=== PATIENT | female | born 1965 | race Caucasian/White ===

== ENCOUNTER 2016-06-15 03:39 | Observation (INO) | payer OTHER ==
[2016-06-15] MEDS ORDERED: HYDROmorphone 1 MG/ML Syringe IVPUSH ONE (04:07)
[2016-06-15] MEDS ORDERED: Sodium Chloride 0.9% 10 ML Syringe FLUSH PRN ×2 (04:07→14:02)
[2016-06-15] MEDS ORDERED: Ondansetron 4 MG/2 ML SDV IVPUSH ONE (04:07)
[2016-06-15] MEDS: Sodium Chloride 0.9% 1,000 ML IV SCH ×3 (04:35→19:29)
[2016-06-15] MEDS ORDERED: Sodium Chloride 0.9% 500 ML IV ONE ×2 (05:44→05:57)
--- NOTE | 2016-06-15 05:57 | EDM.PDOC ---
ED HPI GI/ABDOMINAL - General Chief Complaint: Abdominal Pain Stated Complaint: RIGHT SIDE PAIN Time Seen by Provider: 06/15/16 04:00 Source of Information: Reports: Patient, RN notes reviewed - History of Present Illness INITIAL COMMENTS - FREE TEXT/NARRATIVE: 50-year-old female comes in with abdominal flank and back discomfort. This started yesterday during the day right lower abdomen and right flank. The pain worsened last evening and then became much worse early this morning she presents with nausea, quite severe right flank and back discomfort. On arrival she is having a lot of cramping. She's not been able to sleep. There's been nausea but no vomiting. She also has had several episodes of quite watery diarrhea. No fever or chills. No voiding symptomatology. She does have some mild discomfort going to the left lower abdomen but its much less severe than what she is experiencing on the right. The pain does radiate toward the right groin but not completely into the groin. She's never had a kidney stone before. She still does have her appendix. 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: - Past Surgical History HEENT Surgical History: Reports: Tonsillectomy GI Surgical History: Reports: Appendectomy Female Surgical History: Reports: Breast biopsy, section, Hysterectomy, Tubal ligation Dermatological Surgical History: Reports: Other (see below) Social & Family History - Tobacco Use Smoking Status *Q: Current Some Day Smoker Years of Tobacco use: 30 Packs/Tins Daily: 0.5 Used Tobacco, but Quit: Yes Month Tobacco Last Used: Second Hand Smoke Exposure: No - Caffeine Use Caffeine Use: Reports: None - Recreational Drug Use Recreational Drug Use: No Drug Use in Last 12 Months: No ED ROS GENERAL - Review of Systems Review Of Systems: See Below Constitutional: Reports: chills. Denies: fever HEENT: Reports: No symptoms Respiratory: Denies: Shortness of Breath, Pleuritic Chest Pain Cardiovascular: Denies: Chest pain GI/Abdominal: Reports: Abdominal pain, Diarrhea (Primarily right sided), Nausea. Denies: Hematochezia, Melena, Vomiting Musculoskeletal: Reports: no symptoms Skin: Reports: no symptoms Neurological: Reports: No Symptoms ED EXAM, GI/ABD - Physical Exam Exam: See Below General Appearance: alert, severe distress Eyes: bilateral: normal appearance Throat/Mouth: Normal inspection, Normal oropharynx Neck: supple, full range of motion Respiratory/Chest: no respiratory distress, lungs clear, normal breath sounds Cardiovascular: tachycardia GI/Abdominal: tenderness (Right lower abdomen and right flank). No: guarding, rebound Extremities: normal inspection, normal range of motion Neurological: alert, oriented, no motor/sensory deficits Course - Vital Signs Last Recorded V/S: Last Vital Signs Temp 97.2 F 06/15/16 03:45 Pulse 109 H 06/15/16 03:45 Resp 20 06/15/16 03:45 BP 156/79 H 06/15/16 03:45 Pulse Ox 100 06/15/16 03:45 - Orders/Labs/Meds Orders: Active Orders 24 hr Category Date Time Status Peripheral IV Care [RC] . DIRECTED Care 06/15/16 04:07 Active Abdomen Pelvis wo Cont [CT] Stat Exams 06/15/16 04:26 Taken Sodium Chloride 0.9% [Normal Saline] 1,000 ml Med 06/15/16 04:15 Active IV ASDIRECTED Sodium Chloride 0.9% [Saline Flush] Med 06/15/16 04:07 Active 10 ml FLUSH ASDIRECTED PRN Peripheral IV Insertion Adult [OM.PC] Stat Oth 06/15/16 04:07 Ordered Medication Orders Sodium Chloride (Normal Saline) 1,000 mls @ 150 mls/hr IV ASDIRECTED MARCUS Last Admin: 06/15/16 04:35 Dose: 150 mls/hr Sodium Chloride (Saline Flush) 10 ml FLUSH ASDIRECTED PRN PRN Reason: Keep Vein Open Last Admin: 06/15/16 04:37 Dose: 10 ml Labs: Laboratory Tests 06/15/16 06/15/16 06/15/16 Range/Units 04:40 04:40 04:40 WBC 10.93 H (3.98-10.04) K/mm3 RBC 5.06 (3.98-5.22) M/mm3 Hgb 14.4 (11.2-15.7) gm/L Hct 42.3 (34.1-44.9) % MCV 83.6 (79.4-94.8) fl MCH 28.5 (25.6-32.2) pg MCHC 34.0 (32.2-35.5) g/dl RDW Std Deviation 43.4 (36.4-46.3) fL Plt Count 221 (182-369) K/mm3 MPV 10.4 (9.4-12.3) fl Neut % (Auto) 72.6 H (34.0-71.1) % Lymph % (Auto) 21.2 (19.3-51.7) % [facility] % (Auto) 4.6 L (4.7-12.5) % Eos % (Auto) 1.0 (0.7-5.8) Baso % (Auto) 0.5 (0.1-1.2) % Neut # (Auto) 7.94 H (1.56-6.13) K/mm3 Lymph # (Auto) 2.32 (1.18-3.74) K/mm3 [facility] # (Auto) 0.50 H (0.24-0.36) K/mm3 Eos # (Auto) 0.11 (0.04-0.36) K/mm3 Baso # (Auto) 0.05 (0.01-0.08) K/mm3 Sodium 141 (136-145) mEq/L Potassium 3.1 L (3.5-5.1) mEq/L Chloride 106 (98-107) mEq/L Carbon Dioxide 20 L (21-32) mEq/L Anion Gap 18.1 H (5-15) BUN 12 (7-18) mg/dL Creatinine 0.9 (0.55-1.02) mg/dL Est Cr Clr Drug Dosing 66.54 mL/min Estimated GFR (MDRD) > 60 (>60) mL/min BUN/Creatinine Ratio 13.3 L (14-18) Glucose 149 H (74-106) mg/dL Calcium 9.0 (8.5-10.1) mg/dL Total Bilirubin 0.2 (0.2-1.0) mg/dL AST 11 L (15-37) U/L ALT 22 (14-59) U/L Alkaline Phosphatase 97 (46-116) U/L C-Reactive Protein < 0.2 (<1.0) mg/dL Total Protein 7.9 (6.4-8.2) g/dl Albumin 3.7 (3.4-5.0) g/dl Globulin 4.2 gm/dL Albumin/Globulin Ratio 0.9 L (1-2) Urine Color (Yellow) Urine Appearance (Clear) Urine pH (5.0-8.0) Ur Specific [place] (1.005-1.030) Urine Protein (Negative) Urine Glucose (UA) (Negative) Urine Ketones (Negative) Urine Occult Blood (Negative) Urine Nitrite (Negative) Urine Bilirubin (Negative) Urine Urobilinogen (0.2-1.0) Ur Leukocyte Esterase (Negative) Urine RBC (0-5) /hpf Urine WBC (0-5) /hpf Ur Epithelial Cells (0-5) /hpf Urine Bacteria (FEW) /hpf Urine Mucus (FEW) /hpf 06/15/16 Range/Units 05:06 WBC (3.98-10.04) K/mm3 RBC (3.98-5.22) M/mm3 Hgb (11.2-15.7) gm/L Hct (34.1-44.9) % MCV (79.4-94.8) fl MCH (25.6-32.2) pg MCHC (32.2-35.5) g/dl RDW Std Deviation (36.4-46.3) fL Plt Count (182-369) K/mm3 MPV (9.4-12.3) fl Neut % (Auto) (34.0-71.1) % Lymph % (Auto) (19.3-51.7) % [facility] % (Auto) (4.7-12.5) % Eos % (Auto) (0.7-5.8) Baso % (Auto) (0.1-1.2) % Neut # (Auto) (1.56-6.13) K/mm3 Lymph # (Auto) (1.18-3.74) K/mm3 [facility] # (Auto) (0.24-0.36) K/mm3 Eos # (Auto) (0.04-0.36) K/mm3 Baso # (Auto) (0.01-0.08) K/mm3 Sodium (136-145) mEq/L Potassium (3.5-5.1) mEq/L Chloride (98-107) mEq/L Carbon Dioxide (21-32) mEq/L Anion Gap (5-15) BUN (7-18) mg/dL Creatinine (0.55-1.02) mg/dL Est Cr Clr Drug Dosing mL/min Estimated GFR (MDRD) (>60) mL/min BUN/Creatinine Ratio (14-18) Glucose (74-106) mg/dL Calcium (8.5-10.1) mg/dL Total Bilirubin (0.2-1.0) mg/dL AST (15-37) U/L ALT (14-59) U/L Alkaline Phosphatase (46-116) U/L C-Reactive Protein (<1.0) mg/dL Total Protein (6.4-8.2) g/dl Albumin (3.4-5.0) g/dl Globulin gm/dL Albumin/Globulin Ratio (1-2) Urine Color Yellow (Yellow) Urine Appearance Clear (Clear) Urine pH 6.0 (5.0-8.0) Ur Specific [place] 1.020 (1.005-1.030) Urine Protein Trace H (Negative) Urine Glucose (UA) Negative (Negative) Urine Ketones Negative (Negative) Urine Occult Blood Negative (Negative) Urine Nitrite Negative (Negative) Urine Bilirubin Negative (Negative) Urine Urobilinogen 0.2 (0.2-1.0) Ur Leukocyte Esterase Negative (Negative) Urine RBC 0-5 (0-5) /hpf Urine WBC 0-5 (0-5) /hpf Ur Epithelial Cells 0-5 (0-5) /hpf Urine Bacteria Not seen (FEW) /hpf Urine Mucus Not seen (FEW) /hpf Meds: Medications Generic Name Dose Route Start Last Admin Trade Name Freq PRN Reason Stop Dose Admin Sodium Chloride 1,000 mls @ 150 mls/hr 06/15/16 04:15 06/15/16 04:35 Normal Saline IV 150 mls/hr ASDIRECTED MARCUS Administration Sodium Chloride 10 ml 06/15/16 04:07 06/15/16 04:37 Saline Flush FLUSH 10 ml ASDIRECTED PRN Administration Keep Vein Open Discontinued Medications Generic Name Dose Route Start Last Admin Trade Name Freq PRN Reason Stop Dose Admin Hydromorphone HCl 0.5 mg 06/15/16 04:07 06/15/16 04:37 Dilaudid IVPUSH 06/15/16 04:08 0.5 mg ONETIME ONE Administration Hydromorphone HCl 0.5 mg 06/15/16 06:13 06/15/16 06:19 Dilaudid IVPUSH 06/15/16 06:14 0.5 mg ONETIME ONE Administration Sodium Chloride 500 mls @ 999 mls/hr 06/15/16 05:44 06/15/16 06:45 Normal Saline IV 06/15/16 06:14 999 mls/hr .BOLUS ONE Administration Sodium Chloride 500 mls @ 999 mls/hr 06/15/16 05:57 Normal Saline IV 06/15/16 06:27 .BOLUS ONE Ondansetron HCl 4 mg 06/15/16 04:07 06/15/16 04:35 Zofran IVPUSH 06/15/16 04:08 4 mg ONETIME ONE Administration - Re-Assessments/Exams Free Text/Narrative Re-Assessment/Exam: 06/15/16 06:00. Patient had fairly good relief initially after Dilaudid 0.5 mg IV along with Zofran [address] report has come back showing a mesenteric mass with associated lymphadenopathy and mesenteric stranding. See radiologist report for details. Appendix was visualized and was normal. No evidence for kidney stones or hydroureter. UA did come back normal. Labs are as documented. White blood count mildly elevated, anion gap was elevated and Co2 was down showing at least moderate dehydration. 06:45. Her pain did start coming back a short time ago and have given a further 0.5 mg dilaudid IV. I consulted with Dr. Aj Reyes, general surgeon subcontract manager. Because this does not look like a surgical problem at this point he has asked that I consider admitting to medicine and he will consult to help figure out further plan of treatment. At this point we'll admit for pain control, fluid hydration and try get more clarification from Radiologist regarding etiology of current findings. Departure - Departure Time of Disposition: 07:00 Disposition: Admitted As Inpatient 65 Condition: fair Clinical Impression: Dehydration Abdominal pain Qualifiers: Abdominal location: right lower quadrant Qualified Code(s): R10.31 - Right lower quadrant pain Diarrhea Qualifiers: Diarrhea type: unspecified type Qualified Code(s): R19.7 - Diarrhea, unspecified Forms: ED Department Discharge - My Orders Last 24 Hours: My Active Orders 06/15/16 04:07 Peripheral IV Care [RC] . DIRECTED Sodium Chloride 0.9% [Saline Flush] 10 ml FLUSH ASDIRECTED PRN Peripheral IV Insertion Adult [OM.PC] Stat 06/15/16 04:15 Sodium Chloride 0.9% [Normal Saline] 1,000 ml IV ASDIRECTED 06/15/16 04:26 Abdomen Pelvis wo Cont [CT] Stat - Assessment/Plan Last 24 Hours: My Active Orders 06/15/16 04:07 Peripheral IV Care [RC] . DIRECTED Sodium Chloride 0.9% [Saline Flush] 10 ml FLUSH ASDIRECTED PRN Peripheral IV Insertion Adult [OM.PC] Stat 06/15/16 04:15 Sodium Chloride 0.9% [Normal Saline] 1,000 ml IV ASDIRECTED 06/15/16 04:26 Abdomen Pelvis wo Cont [CT] Stat
[2016-06-15] MEDS ORDERED: HYDROmorphone 0.5 MG/0.5 ML Syringe IVPUSH ONE ×2 (06:13→07:40)
[2016-06-15] MEDS ORDERED: Potassium Chloride 10 MEQ in Premix Bag 1 BAG IV ONE (07:28)
[2016-06-15] MEDS ORDERED: Sodium Chloride 0.9% 1,000 ML IV SCH (07:45)
--- NOTE | 2016-06-15 08:16 | CT ---
CT abdomen and pelvis Technique: Multiple axial sections were obtained from above the dome of the diaphragm inferiorly through the pubic symphysis. Intravenous and oral contrast has not been given. Study was performed as a ureteral stone protocol. Comparison: Previous CT abdomen and pelvis exam of 02/25/09. Findings: Kidneys show no hydronephrosis. Very minimal nonobstructing stone seen within the upper right kidney. No other abnormal calcifications are seen along the course of the ureters or within the kidneys. Visualized lung bases show nothing acute. Small calcification noted within the liver believed to represent incidental granuloma. No other focal parenchymal abnormality is seen within the liver. Spleen appears within normal limits. Adrenal glands show no nodule. Pancreas shows no discrete abnormality. Gallbladder shows no calcified gallstones. Aorta contains atherosclerotic calcification without aneurysmal dilatation. Several slightly prominent retroperitoneal lymph nodes are seen. Possible soft tissue mass at the root of the mesentery is seen measuring around 3.0 cm. There are some enlarged surrounding lymph nodes seen within the mesentery. No pelvic mass or adenopathy is seen. No free fluid is seen. No findings of appendicitis. Bone window settings were reviewed which show sclerosis within the left sacroiliac joint which is felt to be degenerative. Scattered degenerative endplate spurring is seen within the spine. Impression: 1. Small mesenteric soft tissue mass measuring 3.0 cm. Small surrounding mesentery lymph nodes are seen as well as minimal retroperitoneal adenopathy. These findings are an interval change from previous CT exam. Detail is somewhat limited without oral contrast. Recommend these findings be confirmed after oral and IV contrast. 2. Minimal nonobstructing stone within the right kidney. No hydronephrosis or ureteral stone is seen. 3. Other incidental findings as described above. Diagnostic code #9 I agree with preliminary report issued by [facility] (report finalized on 06/15/16, 6:25 AM Central Time)
--- NOTE | 2016-06-15 09:02 | PCM.HP ---
H&P History of Present Illness - General Date of Service: 06/15/16 Admit Problem/Dx: Admission Diagnosis/Problem Admission Diagnosis/Problem Abdominal pain Source of Information: Patient, Family, Provider, RN notes reviewed History Limitations: Reports: No limitations - History of Present Illness Initial Comments - Free Text/Narative: This a 50 yo white female with no significant past medical hx/o who comes in with complaints gradually worsening right lower abdominal pain with radiation to the back that started yesterday. Her symptom is associated with nausea w/o emesis. She also reports watery diarrhea. She denies any fever or chills. She denies any urianry symptoms. She denies any hx/o malignancy. She hx/o endoscopy in the past. However she admits to a strong family hx/o colon cancer with her father and a sister. Her initial work up in ED shows a CBC remarkable for WBC of 10.93, and Neutrophils or 72.6%. Her chemistry is significant for K of 3.1, CO2 of 20, AG of 18.1, BS of 149, and AST of 11. Her UA is negative for UTI. Her Abdominal CT scan shows an abnormal mesenteric mass with retro-peritoneal adenopathy. Patient is being admitted for Abdominal Pain. Dr. Reyes was consulted in ED for further evaluation. 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: - Past Surgical History HEENT Surgical History: Reports: Tonsillectomy GI Surgical History: Reports: Appendectomy Female Surgical History: Reports: Breast biopsy, section, Hysterectomy, Tubal ligation Dermatological Surgical History: Reports: Other (see below) Social & Family History - Tobacco Use Smoking Status *Q: Current Some Day Smoker Years of Tobacco use: 30 Packs/Tins Daily: 0.5 Used Tobacco, but Quit: Yes Month Tobacco Last Used: Second Hand Smoke Exposure: No - Caffeine Use Caffeine Use: Reports: None - Recreational Drug Use Recreational Drug Use: No Drug Use in Last 12 Months: No H&P Review of Systems - Review of Systems: Review Of Systems: See Below General: Denies: fever, chills HEENT: Reports: no symptoms Pulmonary: Denies: Shortness of Breath Cardiovascular: Denies: chest pain Gastrointestinal: Reports: Abdominal pain, Diarrhea, Nausea. Denies: Decreased appetite, Difficulty swallowing, Hematemesis, Hematochezia, Vomiting Genitourinary: Reports: no symptoms Musculoskeletal: Reports: no symptoms Skin: Denies: cyanosis, pruritis, rash, erythema Psychiatric: Denies: depression, anxiety, agitation, hallucinations Neurological: Denies: Seizure, Difficulty Walking, Weakness, Gait Disturbance Hematologic/Lymphatic: Reports: no symptoms Immunologic: Reports: no symptoms Exam - Exam Exam: See Below - Vital Signs Vital Signs: Last Vital Signs Temp 36.2 C 06/15/16 03:45 Pulse 109 H 06/15/16 03:45 Resp 20 06/15/16 03:45 BP 156/79 H 06/15/16 03:45 Pulse Ox 100 06/15/16 03:45 Weight: 98.43 kg - Exam General: alert, oriented, cooperative, mild distress HEENT: Conjunctiva clear, EACs clear, EOMI, Hearing intact, Mucosa moist & pink , Nares patent, Normal nasal septum, Posterior pharynx clear, Pupils equal, Pupils reactive Neck: supple, trachea midline Lungs: Clear to auscultation, Normal respiratory effort Cardiovascular: regular rate, regular rhythm Abdomen: normal bowel sounds, soft, organomegaly, tenderness (right lower abdomen). No: distention, guarding, rigidity, rebound (Female) Exam: Deferred Rectal (Female) Exam: Deferred Back Exam: normal inspection, decreased range of motion Extremities: normal inspection, normal pulses Peripheral Pulses: 2+: posterior tibial (L), posterior tibial (R), dorsalis pedis (L), dorsalis pedis (R) Skin: warm, dry, intact Neuro Extensive - Mental Status: oriented x3, normal cognition, memory intact Neuro Extensive - Motor, Sensory, Reflexes: CN II-XII intact, normal gait Psychiatric: alert, normal affect, normal mood - Patient Data Result Diagrams: 06/15/16 04:40 06/15/16 04:40 *Q Meaningful Use (ADM) - VTE *Q VTE Criteria *Q: - Stroke *Q Stroke Criteria *Q: - AMI *Q AMI Criteria *Q: Problem List Initiated/Reviewed/Updated: Yes Orders Last 24hrs: Active Orders 24 hr Category Date Time Status Sodium Chloride 0.9% [Normal Saline] 1,000 ml Med 06/15/16 07:45 Active IV ASDIRECTED Medication Orders Sodium Chloride (Normal Saline) 1,000 mls @ 150 mls/hr IV ASDIRECTED MARCUS Last Admin: 06/15/16 04:35 Dose: 150 mls/hr Potassium Chloride 10 meq/ (Premix) 100 mls @ 50 mls/hr IV ASDIRECTED ONE Stop: 06/15/16 09:27 Last Admin: 06/15/16 07:37 Dose: 50 mls/hr Sodium Chloride (Normal Saline) 1,000 mls @ 150 mls/hr IV ASDIRECTED MARCUS Sodium Chloride (Saline Flush) 10 ml FLUSH ASDIRECTED PRN PRN Reason: Keep Vein Open Last Admin: 06/15/16 04:37 Dose: 10 ml Assessment/Plan Comment:: Assessment/Plan: Acute: Right Lower Abdominal Pain - Abdominal CT scan: 3 cm small mesenteric soft tissue mass. Retro- peritoneal adenopathy - Strong family hx/o Colon CA : Dad and Sister (both ) - Suspect Lymphoma/Intra-abdominal Tumor/Carcinoid Tumor - Awaiting further input from Dr. Reyes - Consider CT scan with Contrast - PRN pain meds for now Nausea w/o Vomiting - PRN Anti-emesis - Supportive Care Watery Diarrhea - No unusual drink or diet - No recent travel - No recent antibiotic use - Cannot r/o stomach flu - Supportive Clear Hypokalemia - K 3.1 likely from GI Loss - Pharmacy to replete and monitor Non-obstructing Stone in the Right Kidney Chronic: Nicotine Dependence/Active Smoker Muscle Spasm Plan: Admit to Obs Routine AM Labs Offered Nicotine Patch-refused PRN Meds for Symptomatic Control Consult Dr. Reyes NPO for now until GS eval SW/CM for d/c planning CT scan with contrast Code status:1
[2016-06-15] MEDS ORDERED: Acetaminophen 325 MG Tab PO PRN (10:37)
[2016-06-15] MEDS ORDERED: Polyethylene Glycol 3350 Powder 17 GM Packet PO PRN (10:37)
[2016-06-15] MEDS ORDERED: Bisacodyl 5 MG Tab PO PRN (10:37)
[2016-06-15] MEDS ORDERED: Ondansetron 4 MG/2 ML SDV IV PRN (10:37)
[2016-06-15] MEDS ORDERED: Temazepam 30 MG Cap PO PRN (10:37)
[2016-06-15] MEDS ORDERED: LORazepam 2 MG/ML MDV IV PRN (10:37)
[2016-06-15] MEDS ORDERED: Promethazine 12.5 MG in Sodium Chloride 0.9% 50 ML IV PRN (10:37)
[2016-06-15] MEDS ORDERED: Albuterol/Ipratropium 3.0-0.5 MG/3 ML Neb Soln NEB PRN (10:37)
[2016-06-15] MEDS: HYDROmorphone 1 MG/ML Syringe IVPUSH PRN (10:39)
[2016-06-15] MEDS ORDERED: Cyclobenzaprine 10 MG Tab PO PRN (10:40)
[2016-06-15] MEDS ORDERED: Iopamidol 612 MG/ML 150 ML Bottle IVPUSH ONE (14:02)
[2016-06-15] MEDS ORDERED: Diatrizoate Meglumine/Diatrizoate Sodium 37% 120 ML Bottle PO ONE (14:02)
[2016-06-15] MEDS: Acetaminophen/HYDROcodone 325-5 MG Tab PO PRN ×2 (15:58→20:04)
--- NOTE | 2016-06-15 15:58 | CT ---
CT abdomen and pelvis Technique: Multiple axial sections were obtained from above the dome of the diaphragm inferiorly through the pubic symphysis. Intravenous and oral contrast was utilized. Comparison: Previous CT study performed earlier on the same day (time 04:48 AM). Findings: Mesenteric mass is confirmed on current exam. Slight spiculation is seen into the mesentery. Mass measures 2.5 cm in AP dimension and 2.8 cm in transverse dimension. There is a portion of superior mesenteric artery that extends through this mass. Small surrounding lymph nodes are seen which are felt to be pathologic. Enlarged left retroperitoneal lymph node is seen measuring 1.6 cm in size. Anterior to the mesenteric mass there are several loops of small bowel showing wall thickening. Visualized lung bases shows nothing acute. Fatty infiltration noted within the liver. No focal abnormality is appreciated within the liver. Spleen appears within normal limits. Adrenal glands show no nodule. Kidneys show contrast enhancement. No hydronephrosis or mass is seen. Aorta shows atherosclerotic plaque. Mid aorta is mildly ectatic at 2.3 cm. Pancreas appears to be within normal limits. No pelvic mass or adenopathy is seen. Delayed images show contrast within the bladder. Bone window settings were reviewed which show scattered degenerative change within the spine. Impression: 1. Mesenteric mass is confirmed on current study showing slight spiculation into the mesentery. Several small abnormal surrounding lymph nodes are seen. Slightly enlarged retroperitoneal lymph node seen in the same region. Adjacent areas of bowel wall thickening seen within small bowel. Findings may represent lymphoma. Other etiology could be carcinoid tumor with metastasis, although this is felt less likely than first etiology. Biopsy will be needed to differentiate. 2. Other incidental findings as noted above. Diagnostic code #9 [employer] Supervisor called and talked to Dr. Reyes on 06/15/16 at 0214
--- NOTE | 2016-06-15 23:45 | PCM.SN ---
- Free Text/Narrative Note: CT scan with contrast shows Mesenteric Mass, Several small abnormal surrounding lymph nodes, Slight enlarged retro-peritoneal lymph node. Adjacent areas of bowel wall thickening within the small bowel. Lymphoma vs Carcinoid Tumor with Metastasis. Will defer to Dr. Reyes to this this result with patient.
[2016-06-16] MEDS: Acetaminophen/HYDROcodone 325-5 MG Tab PO PRN ×3 (00:30→12:15)
[2016-06-16] MEDS: HYDROmorphone 1 MG/ML Syringe IVPUSH PRN ×2 (01:07→09:06)
[2016-06-16] MEDS: Sodium Chloride 0.9% 1,000 ML IV SCH ×2 (01:09→08:14)
--- NOTE | 2016-06-16 07:41 | CONS ---
CONSULTING PHYSICIAN: Aj Reyes MD DATE OF CONSULTATION: 06/15/2016 HISTORY: This is a 50-year-old who has abdominal pain, right lower quadrant, radiating to the right flank. This started yesterday morning and continued to be quite severe. This was associated with nausea and no vomiting. She came into the emergency room and was given Dilaudid for pain. CT scan was done and a stone pathology considering that she might have renal stones. This demonstrated a small mesenteric soft tissue measuring 3 cm, surrounding mesenteric lymph nodes seen as well as minimal retroperitoneal adenopathy. Oral contrast was not given. The patient states that, about a week ago, she had similar nagging pain there. She was seen in the walk-in clinic at [place], but nothing specific was established. The patient now is comfortable and not having any particular problem. PAST MEDICAL HISTORY: The patient's past medical history has been that of good health. She has had a tonsillectomy and reports in the history of appendectomy, breasts biopsy, C- section, hysterectomy, and tubal ligation. SOCIAL HISTORY: She is an everyday smoker. Does not use alcohol. FAMILY HISTORY: Prostate cancer in her family. ALLERGIES: None known. MEDICATIONS: None. REVIEW OF SYSTEMS: Has some nausea. No vomiting. Does have diarrhea alternating with constipation, and no change. No chest pain, shortness of breath, cough, hoarseness, wheezing, fainting, weakness, numbness, convulsions, swelling, or swelling of the legs. PHYSICAL EXAMINATION: GENERAL: Reveals a cooperative female. EYES: Sclerae white. Extraocular muscle motion normal. ORAL CAVITY: Healthy mucous membrane with mouth and tongue. NECK: Supple. No nodes. No thyromegaly. Trachea midline. LUNGS: Clear. No rales, rhonchi, or dullness. HEART: Tones regular rate. No S3, S4, jugular venous distention or murmurs. ABDOMEN: Soft. No tenderness, guarding, rebound, organomegaly, or pulsatile masses. EXTREMITIES: Upper and lower extremities, no angulation deformities. No cervical or inguinal lymph nodes. Moves all 4 extremities. NEUROLOGIC: 3 through 12 intact. No sensorineural deficit. SKIN: No symptoms. ASSESSMENT: Abdominal pain with abnormal CT scan. Abdominal pain has resolved. We will review the x-ray with radiologist. Consider possibly repeating the CT scan with contrast. MMODAL /[id number]
[2016-06-16] MEDS ORDERED: Nicotine 7 MG/24 Hr Patch TRDERM SCH (09:00)
--- NOTE | 2016-06-16 14:41 | PCM.PN ---
- General Info Date of Service: 06/16/16 Functional Status: Reports: pain controlled, tolerating diet, ambulating, urinating - Review of Systems General: Reports: Weakness HEENT: Reports: no symptoms Pulmonary: Reports: shortness of breath Cardiovascular: Reports: No Symptoms Gastrointestinal: Reports: Abdominal pain Genitourinary: Reports: no symptoms Musculoskeletal: Reports: no symptoms Skin: Reports: no symptoms Neurological: Reports: No Symptoms Psychiatric: Reports: no symptoms - Patient Data Vitals - most recent: Last Vital Signs Temp 36.2 C 06/16/16 05:56 Pulse 68 06/16/16 05:56 Resp 17 06/16/16 05:56 BP 136/60 06/16/16 05:56 Pulse Ox 92 L 06/16/16 05:56 Weight - most recent: 98.928 kg Lab Results last 24 hrs: Laboratory Results - last 24 hr 06/16/16 06/16/16 Range/Units 06:04 06:04 WBC 9.62 (3.98-10.04) K/mm3 RBC 4.45 (3.98-5.22) M/mm3 Hgb 12.7 (11.2-15.7) gm/L Hct 38.2 (34.1-44.9) % MCV 85.8 (79.4-94.8) fl MCH 28.5 (25.6-32.2) pg MCHC 33.2 (32.2-35.5) g/dl RDW Std Deviation 45.0 (36.4-46.3) fL Plt Count 198 (182-369) K/mm3 MPV 10.1 (9.4-12.3) fl Neut % (Auto) 59.1 (34.0-71.1) % Lymph % (Auto) 33.1 (19.3-51.7) % [place] % (Auto) 6.1 (4.7-12.5) % Eos % (Auto) 1.1 (0.7-5.8) Baso % (Auto) 0.5 (0.1-1.2) % Neut # (Auto) 5.68 (1.56-6.13) K/mm3 Lymph # (Auto) 3.18 (1.18-3.74) K/mm3 [place] # (Auto) 0.59 H (0.24-0.36) K/mm3 Eos # (Auto) 0.11 (0.04-0.36) K/mm3 Baso # (Auto) 0.05 (0.01-0.08) K/mm3 Sodium 143 (136-145) mEq/L Potassium 3.5 (3.5-5.1) mEq/L Chloride 110 H (98-107) mEq/L Carbon Dioxide 23 (21-32) mEq/L Anion Gap 13.5 (5-15) BUN 4 L (7-18) mg/dL Creatinine 0.7 (0.55-1.02) mg/dL Est Cr Clr Drug Dosing 85.56 mL/min Estimated GFR (MDRD) > 60 (>60) mL/min BUN/Creatinine Ratio 5.7 L (14-18) Glucose 93 (74-106) mg/dL Calcium 7.7 L (8.5-10.1) mg/dL Magnesium 1.9 (1.8-2.4) mg/dl Med Orders - Current: Current Medications Acetaminophen (Tylenol) 650 mg PO Q4H PRN PRN Reason: Pain (Mild 1-3)/fever Hydrocodone Bitart/Acetaminophen (Anthon 325-5 Mg) 1 tab PO Q4H PRN PRN Reason: Pain (moderate 4-6) Last Admin: 06/16/16 12:15 Dose: 1 tab Albuterol/Ipratropium (Duoneb 3.0-0.5 Mg/3 Ml) 3 ml NEB Q4H PRN PRN Reason: Shortness Of Breath/wheezing Bisacodyl (Dulcolax) 5 mg PO DAILY PRN PRN Reason: Constipation Cyclobenzaprine HCl (Flexeril) 5 mg PO DAILY PRN PRN Reason: Pain Hydromorphone HCl (Dilaudid) 1 mg IVPUSH Q4H PRN PRN Reason: Pain Last Admin: 06/16/16 09:06 Dose: 1 mg Sodium Chloride (Normal Saline) 1,000 mls @ 150 mls/hr IV ASDIRECTED [facility] Last Admin: 06/16/16 08:14 Dose: 150 mls/hr Lorazepam (Ativan) 1 mg IV Q6H PRN PRN Reason: Nausea/Vomiting Miscellaneous Information (Remove Patch) 0 ea TRDERM DAILY [facility] Last Admin: 06/16/16 08:14 Dose: Not Given Nicotine (Habitrol) 7 mg TRDERM DAILY [facility] Last Admin: 06/16/16 08:14 Dose: Not Given Ondansetron HCl (Zofran) 4 mg IV Q6H PRN PRN Reason: Nausea/Vomiting Last Admin: 06/15/16 14:20 Dose: 4 mg Polyethylene Glycol (Miralax) 17 gm PO DAILY PRN PRN Reason: Constipation Senna/Docusate Sodium (Senna Plus) 1 tab PO BID PRN PRN Reason: Constipation Sodium Chloride (Saline Flush) 10 ml FLUSH ONETIME PRN PRN Reason: IV FLUSH Last Admin: 06/15/16 14:31 Dose: 10 ml Temazepam (Restoril) 30 mg PO BEDTIME PRN PRN Reason: Sleep Discontinued Medications Diatrizoate Meglum/Diatrizoate Sod (Gastrografin 37%) 90 ml PO ONETIME ONE Stop: 06/15/16 14:03 Last Admin: 06/15/16 14:31 Dose: 90 ml Hydromorphone HCl (Dilaudid) 0.5 mg IVPUSH ONETIME ONE Stop: 06/15/16 04:08 Last Admin: 06/15/16 04:37 Dose: 0.5 mg Hydromorphone HCl (Dilaudid) 0.5 mg IVPUSH ONETIME ONE Stop: 06/15/16 06:14 Last Admin: 06/15/16 06:19 Dose: 0.5 mg Hydromorphone HCl (Dilaudid) 0.5 mg IVPUSH ONETIME ONE Stop: 06/15/16 07:41 Last Admin: 06/15/16 07:44 Dose: 0.5 mg Sodium Chloride (Normal Saline) 500 mls @ 999 mls/hr IV .BOLUS ONE Stop: 06/15/16 06:14 Last Admin: 06/15/16 06:45 Dose: 999 mls/hr Sodium Chloride (Normal Saline) 500 mls @ 999 mls/hr IV .BOLUS ONE Stop: 06/15/16 06:27 Last Admin: 06/15/16 07:56 Dose: Not Given Potassium Chloride 10 meq/ (Premix) 100 mls @ 50 mls/hr IV ASDIRECTED ONE Stop: 06/15/16 09:27 Last Admin: 06/15/16 07:37 Dose: 50 mls/hr Sodium Chloride (Normal Saline) 1,000 mls @ 150 mls/hr IV ASDIRECTED [facility] Promethazine HCl 12.5 mg/ (Sodium Chloride) 50.5 mls @ 100 mls/hr IV Q6H PRN PRN Reason: Nausea/Vomiting Iopamidol (Isovue-300 (61%)) 150 ml IVPUSH ONETIME ONE Stop: 06/15/16 14:03 Last Admin: 06/15/16 14:31 Dose: 110 ml Ondansetron HCl (Zofran) 4 mg IVPUSH ONETIME ONE Stop: 06/15/16 04:08 Last Admin: 06/15/16 04:35 Dose: 4 mg Sodium Chloride (Saline Flush) 10 ml FLUSH ASDIRECTED PRN PRN Reason: Keep Vein Open Last Admin: 06/15/16 04:37 Dose: 10 ml - Exam Quality Assessment: DVT prophylaxis General: alert, oriented, cooperative, no acute distress HEENT: Pupils equal, Pupils reactive Neck: supple, trachea midline Lungs: Normal respiratory effort Cardiovascular: Regular Rate Abdomen: bowel sounds present, soft, no tenderness, no distension, tenderness ( RLQ) (Female) Exam: Deferred Back Exam: normal inspection Extremities: normal pulses Skin: warm Neurological: no new focal deficit, normal gait, normal speech Psy/Mental Status: alert, normal affect, normal mood - Problem List Review Problem List Initiated/Reviewed/Updated: Yes - Plan Plan:: Assessment/Plan: Acute: Right Lower Abdominal Pain - Abdominal CT scan: 3 cm small mesenteric soft tissue mass. Retro- peritoneal adenopathy - Strong family hx/o Colon CA : Dad and Sister (both ) - Suspect Lymphoma/Intra-abdominal Tumor/Carcinoid Tumor - Awaiting further input from Dr. Reyes - Consider CT scan with Contrast - PRN pain meds for now Nausea w/o Vomiting - PRN Anti-emesis - Supportive Care Watery Diarrhea - No unusual drink or diet - No recent travel - No recent antibiotic use - Cannot r/o stomach flu - Supportive Clear Hypokalemia - K 3.1 likely from GI Loss - Pharmacy to replete and monitor Non-obstructing Stone in the Right Kidney Chronic: Nicotine Dependence/Active Smoker Muscle Spasm Plan: DC per gen surg with scheduled evaluation in [place]. Routine AM Labs Offered Nicotine Patch-refused PRN Meds for Symptomatic Control Consult Dr. Reyes, will discharge patient SW/CM for d/c planning CT scan with contrast Code status:1
[2016-06-16 15:41] VITALS: BP 132/54
--- NOTE | 2016-07-01 15:31 | PCM.CONSN ---
- General Info Date of Service: 07/01/16 - Patient Data Vitals - most recent: Last Vital Signs Temp 98.8 F 06/16/16 07:48 Pulse 60 06/16/16 07:48 Resp 20 06/16/16 07:48 BP 132/54 L 06/16/16 07:48 Pulse Ox 100 06/16/16 07:48 Weight - most recent: 98.928 kg Med Orders - Current: Current Medications Discontinued Medications Acetaminophen (Tylenol) 650 mg PO Q4H PRN PRN Reason: Pain (Mild 1-3)/fever Hydrocodone Bitart/Acetaminophen ([place] 325-5 Mg) 1 tab PO Q4H PRN PRN Reason: Pain (moderate 4-6) Last Admin: 06/16/16 12:15 Dose: 1 tab Albuterol/Ipratropium (Duoneb 3.0-0.5 Mg/3 Ml) 3 ml NEB Q4H PRN PRN Reason: Shortness Of Breath/wheezing Bisacodyl (Dulcolax) 5 mg PO DAILY PRN PRN Reason: Constipation Cyclobenzaprine HCl (Flexeril) 5 mg PO DAILY PRN PRN Reason: Pain Diatrizoate Meglum/Diatrizoate Sod (Gastrografin 37%) 90 ml PO ONETIME ONE Stop: 06/15/16 14:03 Last Admin: 06/15/16 14:31 Dose: 90 ml Hydromorphone HCl (Dilaudid) 0.5 mg IVPUSH ONETIME ONE Stop: 06/15/16 04:08 Last Admin: 06/15/16 04:37 Dose: 0.5 mg Hydromorphone HCl (Dilaudid) 0.5 mg IVPUSH ONETIME ONE Stop: 06/15/16 06:14 Last Admin: 06/15/16 06:19 Dose: 0.5 mg Hydromorphone HCl (Dilaudid) 0.5 mg IVPUSH ONETIME ONE Stop: 06/15/16 07:41 Last Admin: 06/15/16 07:44 Dose: 0.5 mg Hydromorphone HCl (Dilaudid) 1 mg IVPUSH Q4H PRN PRN Reason: Pain Last Admin: 06/16/16 09:06 Dose: 1 mg Sodium Chloride (Normal Saline) 1,000 mls @ 150 mls/hr IV ASDIRECTED [facility] Last Admin: 06/16/16 08:14 Dose: 150 mls/hr Sodium Chloride (Normal Saline) 500 mls @ 999 mls/hr IV .BOLUS ONE Stop: 06/15/16 06:14 Last Admin: 06/15/16 06:45 Dose: 999 mls/hr Sodium Chloride (Normal Saline) 500 mls @ 999 mls/hr IV .BOLUS ONE Stop: 06/15/16 06:27 Last Admin: 06/15/16 07:56 Dose: Not Given Potassium Chloride 10 meq/ (Premix) 100 mls @ 50 mls/hr IV ASDIRECTED ONE Stop: 06/15/16 09:27 Last Admin: 06/15/16 07:37 Dose: 50 mls/hr Sodium Chloride (Normal Saline) 1,000 mls @ 150 mls/hr IV ASDIRECTED [facility] Promethazine HCl 12.5 mg/ (Sodium Chloride) 50.5 mls @ 100 mls/hr IV Q6H PRN PRN Reason: Nausea/Vomiting Iopamidol (Isovue-300 (61%)) 150 ml IVPUSH ONETIME ONE Stop: 06/15/16 14:03 Last Admin: 06/15/16 14:31 Dose: 110 ml Lorazepam (Ativan) 1 mg IV Q6H PRN PRN Reason: Nausea/Vomiting Miscellaneous Information (Remove Patch) 0 ea TRDERM DAILY [facility] Last Admin: 06/16/16 08:14 Dose: Not Given Nicotine (Habitrol) 7 mg TRDERM DAILY [facility] Last Admin: 06/16/16 08:14 Dose: Not Given Ondansetron HCl (Zofran) 4 mg IVPUSH ONETIME ONE Stop: 06/15/16 04:08 Last Admin: 06/15/16 04:35 Dose: 4 mg Ondansetron HCl (Zofran) 4 mg IV Q6H PRN PRN Reason: Nausea/Vomiting Last Admin: 06/15/16 14:20 Dose: 4 mg Polyethylene Glycol (Miralax) 17 gm PO DAILY PRN PRN Reason: Constipation Senna/Docusate Sodium (Senna Plus) 1 tab PO BID PRN PRN Reason: Constipation Sodium Chloride (Saline Flush) 10 ml FLUSH ASDIRECTED PRN PRN Reason: Keep Vein Open Last Admin: 06/15/16 04:37 Dose: 10 ml Sodium Chloride (Saline Flush) 10 ml FLUSH ONETIME PRN PRN Reason: IV FLUSH Last Admin: 06/15/16 14:31 Dose: 10 ml Temazepam (Restoril) 30 mg PO BEDTIME PRN PRN Reason: Sleep Consult PN Assessment/Plan Procedures: Procedures ASSAY OF MAGNESIUM (06/15/16) C-REACTIVE PROTEIN (06/15/16) COMPLETE CBC W/AUTO DIFF WBC (06/15/16) COMPREHEN METABOLIC PANEL (06/15/16) CT ABD & PELV W/CONTRAST (06/15/16) CT ABD & PELVIS W/O CONTRAST (06/15/16) EMERGENCY DEPT VISIT (06/15/16) HYDRATE IV INFUSION ADD-ON (06/15/16) METABOLIC PANEL TOTAL CA (06/15/16) REMOVAL OF BREAST LESION (08/25/15) ROUTINE VENIPUNCTURE (06/15/16) THER/PROPH/DIAG IV INF INIT (06/15/16) TX/PRO/DX INJ NEW DRUG ADDON (06/15/16) TX/PRO/DX INJ SAME DRUG [employer] (06/15/16) URINALYSIS AUTO W/SCOPE (06/15/16) URINE CULTURE/COLONY COUNT (09/07/15) Problem List Initiated/Reviewed/Updated: Yes My Orders last 24 hours: discharge dictated MARK
--- NOTE | 2016-07-02 14:48 | DISCH ---
ADMISSION DATE: 06/15/2016 DISCHARGE DATE: 06/16/2016 HISTORY OF PRESENT ILLNESS: This is a 50-year-old female who was admitted by the hospitalist on 06/15/2016. She had pain in the right lower quadrant radiating to the right flank. It started yesterday, continued to be quite severe, associated with nausea, no vomiting. She came into the emergency room and was given Dilaudid. CT scan was done using a stone protocol, thinking that she may have a renal stone. This demonstrated a small mesenteric soft tissue mass 3 cm surrounding the mesenteric lymph node and some minimal retroperitoneal adenopathy. Oral contrast was not given. Surgical consultation was sent to [facility], and I recommended oral contrast and IV contrast. This demonstrated pathology mesenteric mass and enlarged retroperitoneal lymph nodes, adjacent area of bowel wall thickening representing possibly a lymphoma. Other etiology could be carcinoid tumor. A biopsy was needed. Other medical problems were handled by the hospitalist, and his medications were handled by the hospitalist. Arrangements were made for the patient to undergo needle-aspirate biopsy, and he was discharged. PHYSICAL EXAMINATION: GENERAL: Examination at the time of admission revealed an alert, cooperative female. EYES, EARS, NOSE, AND THROAT: Unremarkable. NECK: Supple. LUNGS: Clear. HEART: Tones normal. ABDOMEN: There is no tenderness, guarding, or rebound in the abdomen. EXTREMITIES: Unremarkable. HOSPITAL COURSE: After the patient was seen in the hospital, a repeat CT scan was done with oral and IV contrast showing adenopathy consistent with possible lymphoma. Arrangements were made for her to go to [place] for needle-aspirate biopsy. DISCHARGE DIAGNOSES: 1. Mesenteric soft tissue mass with retroperitoneal adenopathy, suspect lymphoma. 2. Nausea and vomiting, treated with antiemetic drugs. 3. Some watery diarrhea which was worked up, and no specific pathology found. 4. Hypokalemia, which was corrected. CONDITION ON DISCHARGE: Improved. DISCHARGE DIET: Regular. DISCHARGE MEDICATIONS: Per medication reconciliation form. DISCHARGE WORK: No work. DISPOSITION: As per biopsy report in [place]. FINAL DIAGNOSIS: DIET: ACTIVITY: FOLLOW-UP: MMODAL /[id number]
== END 2016-06-16 13:03 | disposition home or self-care (01) ==
LOC: JD.ED 03:39 → JD.MS 07:30
PROVIDERS: ADMIT Internal Medicine; ATTEND Internal Medicine
DX: R10.31 Right lower quadrant pain (principal); R22.9 Localized swelling, mass and lump, unspecified; R59.0 Localized enlarged lymph nodes; R11.0 Nausea; R19.7 Diarrhea, unspecified; E87.6 Hypokalemia; N20.0 Calculus of kidney; F17.210 Nicotine dependence, cigarettes, uncomplicated; Z98.51 Tubal ligation status; Z90.49 Acquired absence of other specified parts of digestive tract; Z90.710 Acquired absence of both cervix and uterus; Z90.89 Acquired absence of other organs; Z98.890 Other specified postprocedural states; Z80.0 Family history of malignant neoplasm of digestive organs
CPT/HCPCS: 36415; 74176; 74177; 80048; 80053; 81001; 83735; 85025; 86140; 96361; 96365; 96375; 96376; 99285; A9270; G0378; J1170; J2405; J3480; J7040; J7050; Q9963; Q9967

== ENCOUNTER 2022-06-22 09:58 | Day surgery (SDC) | payer OTHER ==
[~2022-06-22 09:58] MED LIST: Lactated Ringers 1,000 ML IV SCH; Lidocaine 1%/Sod Bicarbonate in NS 8.4% 1 ML Syringe IDERM PRN; Sodium Chloride 0.9% 10 ML Syringe FLUSH PRN; Sodium Chloride 0.9% 10 ML Syringe FLUSH SCH
[2022-06-22] MEDS ORDERED: Propofol 200 MG/20 ML SDV ONE ×2 (11:28→12:03)
[2022-06-22] MEDS ORDERED: Lidocaine 1% PF 2 ML SDV ONE (12:00)
[2022-06-22 13:08] VITALS: BP 142/78; PULSE 70
== END 2022-06-22 13:02 | disposition home or self-care (01) ==
LOC: JD.SDS 09:58
PROVIDERS: ATTEND Surgery
DX: Z12.11 Encounter for screening for malignant neoplasm of colon (principal); K57.30 Diverticulosis of large intestine without perforation or abscess without bleeding; K62.89 Other specified diseases of anus and rectum; E87.6 Hypokalemia; I10 Essential (primary) hypertension; Z79.899 Other long term (current) drug therapy; Z87.891 Personal history of nicotine dependence; Z80.0 Family history of malignant neoplasm of digestive organs; Z91.040 Latex allergy status; Z90.49 Acquired absence of other specified parts of digestive tract
CPT/HCPCS: 45380; J1642; J2704; J7120; 00812; J3490